=== PATIENT | male | born 2005 | race Two or more races ===

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

== ENCOUNTER 2025-01-13 02:39 | Emergency (ER) | payer BC ==
[2025-01-13] MEDS: Albuterol/Ipratropium 3.0-0.5 MG/3 ML Neb Soln NEB ONE (03:05)
[2025-01-13] MEDS: methylPREDNISolone Sodium Succinate 40 MG/1 ML SDV IM ONE (03:05)
[2025-01-13 03:54] VITALS: BP 114/67; PULSE 93
== END 2025-01-13 04:07 | disposition home or self-care (01) ==
LOC: MW.ED 02:39
DX: R06.02 Shortness of breath (principal); Z79.51 Long term (current) use of inhaled steroids; Z79.899 Other long term (current) drug therapy; Z91.09 Other allergy status, other than to drugs and biological substances; Z87.09 Personal history of other diseases of the respiratory system
CPT/HCPCS: 71045; 96372; 99285; J2919; J7620; 99283; A9270-GY